=== PATIENT | female | born 1990 | race Caucasian/White ===

== ENCOUNTER 2025-06-05 10:13 | Outpatient (AMB) | payer OTHER, SELFPAY ==
[2025-06-05 10:28] VITALS: BP 92/60; PULSE 70; RESP 15; TEMP 36.9; O2SAT 98; BMI 28.7
--- NOTE | 2025-06-05 10:28 | A.OFFPC_ITS ---
Vital Signs 06/05/25 10:28 Height 4 ft 11 in Weight 142 lb BMI 28.7 BP 92/60 Blood Pressure Location Lt brachial Position Sitting Respiration 15 Pulse 70 Pulse Source Pulse Oximeter Temp 98.5 F Temp Source Oral Pulse Oximetry (%) 98 Oxygen Delivery Method Room Air Intake Visit Reasons: Pain in left heel Intake Note: Pt is here today as a New Patient to [facility] c/o foot pain: Pt has a hx of plantar fasiitis Allergies ibuprofen Adverse Reaction (Verified 06/05/25 10:59) hives tramadol Adverse Reaction (Verified 06/05/25 10:59) hives Medication List - Last Reconciled 06/05/25 by Radha Rojas MD albuterol sulfate 90 mcg/actuation (Ventolin HFA) 2 puffs inhalation Q6H PRN Tobacco use date assessed: 06/05/25 Dental Screening Dental Screen Date: 06/05/25 Did you have a dental visit in the last 12 months?: Yes Did you have a dental problem in the last 6 months where you did not have access to dental care?: Yes Was dental information given to patient?: Patient has dentist HPI HPI Comments History of Present Illness Details - The patient is a 35-year-old female ne w to practice, here today to establish care with a new PCP and presenting with ongoing pain and issues related to a previous left foot surgery done in [place]. - She underwent surgery on her left foot approximately three to four years ago in [place] to remove a metallic foreign body from her left heel. Despite the surgery, she continues to experience difficulty bearing weight on the left heel, affecting her gait. - Imaging, including a CT scan, was previously conducted to identify the foreign body. - The patient has asthma and uses an alb uterol inhaler as needed. - She has a history of laparoscopic chol ecystectomy performed approximately seven years ago at [facility] in [place]. [facility] Medical History (Updated 06/05/25 @ 11:18 by Radha Rojas MD) Mild intermittent asthma History of gallstones Chronic pain of left heel Surgical History (Updated 06/05/25 @ 11:10 by Radha Rojas MD) Status post laparoscopic cholecystectomy Family History (Updated 06/05/25 @ 10:31 by Lesly Griggs CMA) Mother Substance use disorder Father Substance use disorder Paternal Grandmother Mental health disorder Social History Housing: Apartment Patient Tobacco Use Status: Current someday Tobacco user e-Cigarette/Vaping Use: Never Used service: No Current occupational status: employed Cognitive needs: No Hearing needs: No Vision needs: Yes Questionnaire PHQ-9 Over the last 2 weeks, how often have you been bothered by any of the following problems? 1. Little interest or pleasure in doing things: not at all 2. Feeling down, depressed, or hopeless: not at all 3. Trouble falling or staying asleep, or sleeping too much: not at all 4. Feeling tired or having little energy: not at all 5. Poor appetite or overeating: not at all 6. Feeling bad about yourself - or that you are a failure or have let yourself or your family down: not at all 7. Trouble concentrating on things, such as reading the newspaper or watching television: not at all 8. Moving or speaking so slowly that other people could have noticed. Or the opposite - being so fidgety or restless that you have been moving around a lot more than usual: not at all 9. Thoughts that you would be better off or of hurting yourself in some way: not at all Total score: 0 Depression Screening Interpretation: Negative Depression Screening Done: Yes 67829 - PHQ-9 Billing: Yes Source: Developed by Drs. Luis Hanna, Adriane Cordoba, Shivam Moses and colleagues, with an educational rogelio from [employer]. Thrive Questionnaire Date Thrive assessed: 05/29/25 I am a: Patient What is your living situation today?: I have a steady place to live Within the past 12 months, did the food you bought not last and you didn't have the money to get more?: Never true Within the past 12 months, did you worry whether your food would run out before you got money to buy more?: Never true Do you have trouble paying for medicines?: No Do you have trouble getting transportation to medical appointments?: No Do you have trouble paying your heating and electricity bill?: No Do you have trouble taking care of your child, family member or friend?: No Do you have trouble with day-to-day activities such as bathing, preparing meals, shopping, managing finances, etc.?: No Are you currently unemployed and looking for a job?: No Are you interested in more education?: No Please select the resources that you would like help with: None Currently or been in a relationship where the following occur: No concerns reported THRIVE Score: 0 AUDIT C Alcohol Use Questionnaire (AUDIT-C) 1. How often do you have a drink containing alcohol?: Never 3. How often do you have six or more drinks on one occasion?: Never Total Score: 0 Score Reviewed/Action Taken: Yes CHRISTINA-7 AMB Questionnaire CHRISTINA-7 Date CHRISTINA - 7 assessed: 06/05/25 Feeling nervous, anxious, or on edge: 1 = Several days Not being able to stop or control worryin = Several days Worrying too much about different things: 1 = Several days Trouble relaxin = Not at all Being so restless that it is hard to sit still: 0 = Not at all Becoming easily annoyed or irritable: 1 = Several days Feeling afraid as if something awful might happen: 0 = Not at all Total CHRISTINA-7 score (0-4 normal; 5-9 mild; 10-14 moderate; 15-21 severe): 4 Source: Developed by Drs. Luis Hanna, Adriane Cordoba, Shivam Moses and colleagues, with an educational rogelio from [employer]. CHRISTINA-7 Assessment Billing CHRISTINA-7 Assessment Tool: CHRISTINA-7 Assessment 44532 ACT Questionnaire In the past 4 weeks, how much of the time did your asthma keep you from getting as much done at work, school or at home?: None of the time During the past 4 weeks, how often have you had shortness of breath?: Not at all During the past 4 weeks, how often did your asthma symptoms wake you up at night or earlier than usual in the morning?: Not at all During the past 4 weeks, how often have you had to use your rescue inhaler or nebulizer medication?: Not at all How would you rate your asthma control during the past 4 weeks?: Completely co ntrolled ACT Interpretation: Negative Score: 25 Review of Systems Const Denies body aches, Denies fatigue, Denies fever(s), Denies headache(s) and Denies weakness Eyes Denies change in vision ENT Denies dizziness, Denies headache(s) and Denies nasal congestion Card Denies chest pain, Denies lightheadedness, Denies palpitations and Denies dyspnea Resp Denies chest congestion, Denies cough, Denies dyspnea and Denies wheezing GI Denies abdominal pain, Denies change in bowel habits and Denies heartburn Denies hematuria, Denies urinary frequency, Denies dysuria and Denies urinary urgency Musc Reports as per HPI Skin/Breast Denies breast pain, Denies breast mass, Denies lesions and Denies rash Neuro Denies dizziness, Denies headache(s) and Denies weakness Psych Reports no additional complaints Endo Denies fatigue, Denies polydipsia, Denies polyuria and Denies palpitations Chaparro/Lymph Denies easy bruising Aller/Immun Denies seasonal rhinorrhea and Denies wheezing Physical exam (Primary Care) Vital Signs: Last Vital Signs Temp 98.5 F 06/05/25 10:28 Pulse 70 06/05/25 10:28 Resp 15 06/05/25 10:28 BP 92/60 06/05/25 10:28 Pulse Ox 98 06/05/25 10:28 Oxygen Delivery Method Room Air 06/05/25 10:28 BMI result Body Mass Index 28.7 Tobacco/Smoking Status: Tobacco use Status Tobacco use date assessed 06/05/25 06/05/25 10:36 Patient Tobacco Use Status Current someday Tobacco 06/05/25 10:36 e-Cigarette/Vaping Use Never Used 06/05/25 10:36 PHQ-9: PHQ-9 Score PHQ-9: Total score 0 06/05/25 11:21 Depression Screening Interpretation: Negative Thrive Assessment: Date of Thrive Assessment Date Thrive assessed 05/29/25 06/05/25 10:36 Currently or been in a relationship where the following occur: No concerns reported Advance Care Planning discussion: Completed/Scanned Date of discussion: 06/05/25 Who was present: Patient Forms completed: Health Care Proxy Time spent: 16-45 minutes Actual minutes spent: 2 Const General: no acute distress and alert Orientation/consciousness: patient oriented x3 HENMT Ears: external ears normal, TM's normal bilaterally and EAC's normal General nose exam: Normal external nose present Mouth: Normal oral and palatal mucosa present and moist mucous membranes Eyes General: appearance normal, both eyes and all related structures Conjunctivae: conjunctivae normal Sclerae: sclerae normal Pupils: Equal, round and reactive pupils present EOM: EOMs intact bilaterally Neck Neck: Yes full ROM, Yes no lymphadenopathy and Yes supple Resp Effort & Inspection: normal respiratory effort and able to speak in complete sentences Auscultation: clear to auscultation bilaterally Cardio Rate: regular rate Rhythm: regular rhythm Heart sounds: S1 normal heart sound present and S2 normal heart sound present GI Palpation (GI): Soft to palpation, nontender and no masses Auscultation: normal bowel sounds Back/Spine/Pelvis Back: No back tenderness Skin General skin exam: no rashes or lesions noted Neuro General: patient oriented x3, gait normal, tone normal, moves all extremities, Normal light touch and pain sensation and no focal motor deficits Cranial nerves: Yes CN's II-XII intact bilaterally and Yes Equal, round and reactive pupils present Cognition (Neuro): normal cognition Extrem Other: Slight tenderness on palpation over left heel, no gross bone deformity or joint swelling seen General: Yes full ROM, Yes no joint enlargement, Yes no clubbing, cyanosis or edema and Yes no calf tenderness Left lower extremity: foot (Crusted lesion on heel of left foot, tender to palpation) Psych Appearance: grossly normal and well kempt Mental Status: mental status grossly normal Speech and movement: Normal speech and movement present Affect: normal affect Coding Level of Care Code New Pt Level 4 (32650) Diagnoses Mild intermittent asthma without complication J45.20 Asthma complication type: uncomplicated Chronic pain of left heel M79.672; G89.29 Screening for malignant neoplasm of cervix Z12.4 Advance directive discussed with patient Z71.89 Additional Codes PHQ-9 - 32383 - PHQ-9 Billing: Yes ([id number]) Vital Signs *Quality* - Advance Care Planning discussion: Completed/Scanned ([id number]) Vital Signs *Quality* - Time spent: 16-45 minutes ([id number]) CHRISTINA-7 Assessment Billing - CHRISTINA-7 Assessment Tool: CHRISTINA-7 Assessment 63946 ([id number]) Asthma Control Questionnaire - ACT Interpretation: Negative ([id number]) Assessment & Plan Assessment & Plan (1) Mild intermittent asthma: Code(s): J45.20 - Mild intermittent asthma, uncomplicated Category: Medical Qualifiers: Asthma complication type: uncomplicated Qualified Code(s): J45.20 - Mild intermittent asthma, uncomplicated Plan: Requested records from previous provider in [place] including vaccines. Refill sent for albuterol inhaler, which she uses rarely (2) Chronic pain of left heel: Code(s): M79.672 - Pain in left foot; G89.29 - Other chronic pain Category: Medical Plan: Podiatry consult ordered, copies of previous records and surgical history, labs, as Ziggy procedures requested from her previous provider in [place] (3) Screening for malignant neoplasm of cervix: Code(s): Z12.4 - Encounter for screening for malignant neoplasm of cervix Plan: Referral to [facility] for her routine Pap and pelvic exam. (4) Advance directive discussed with patient: Code(s): Z71.89 - Other specified counseling Plan: - Initiated the conversation about Advanced Directives. Advanced Directives help patients prepare for current and future decisions about their medical treatment and place of care. Discussed with patient that it is a process where a patients current condition and prognosis are reviewed, their wishes for information regarding their illness are elicited, and likely medical dilemmas are presented and options discussed. Healthcare proxy form completed today. The form can be amended as needed, reviewed yearly and make changes as needed Orders: Referrals Podiatry Referral G89.29 - Other chronic pain, M79.672 - Pain in left foot OPERATIONAL METEOROLOGIST Referral Z12.4 - Encounter for screening for malignant neoplasm of cervix Medications: New albuterol sulfate 90 mcg/actuation (Ventolin HFA) 2 puffs inhalation Q6H PRN 8.5 grams 1RF shortness of breath or wheezing J45.20 - Mild intermittent asthma, uncomplicated
--- OUTSIDE RECORDS SUMMARY | 2025-06-05 11:44 | XMS_ITS ---
Author Name [facility] Organization Unknown History of Medication Use Medication Directions Dispensed Refills Start Date End Date Stat us ondansetron (ZOFRAN) 4 mg tablet Take 1 tablet (4 mg total) by mouth every 8 (eight) hours if needed for nausea or vomiting. 04/16/2025 active SUMAtriptan (IMITREX) 50 mg tablet Take 1 tablet (50 mg total) by mouth 1 (one) time if needed for migraine. May repeat dose once in 2 hours if no relief. Do not exceed 2 doses in 24 hours. 04/16/2025 active albuterol HFA (PROAIR HFA ; PROVENTIL HFA ; VENTOLIN HFA) 90 mcg/actuation inhaler Inhale 2 puffs by mouth every 6 (six) hours if needed for wheezing. active Allergies Allergen Reaction Severity Comment Documented Date Source Statu s IBUPROFEN 06/07/2024 [facility] active TRAMADOL 06/07/2024 [facility] active Problems Problem Status Onset Date Problem Type Date of Resolution Source Mild intermittent asthma without complication active 2025-04-16 ProblemAct [facility]_THSFRAN Migraine without aura and without status migrainosus, not intractable active EncounterDiagnosisAct CT_THS HERNÁN Encounters Encounter Type Encounter Reason Primary Diagnosis Location Date Ambulatory [facility] 04/16/2025 Emergency Headache, unspecified [employer] [facility] 05/04/2022 Emergency Migraine, unspecified, not intractable, without status migrainosus [facility] 04/26/2022 Emergency Pain in left foot [facility] [employer] 03/23/2022 Emergency Other muscle spasm [facility] 09/18/2021 Emergency Pain, unspecified [employer] 09/06/2021 Emergency Headache, unspecified [employer] [facility] 08/28/2021 Emergency Sprain of unspec ified ligament of left ankle, initial encounter [facility] 08/15/2021 Care Team Organization Name Specialty Phone Email Start Date End Da te [facility] PHYSICIAN Primary Care 04/16/2025 [facility] NO PHYSICIAN Primary Care 04/16/2025 [facility] 02/13/2024 [facility] 04/27/2023 [facility] 11/07/2022 06/03/2024 [facility] Primary Care 06/08/2022 [facility]WAF FRYE Primary Care 08/15/202106/08 [facility] Primary Care 021 06/03/2024 [facility] NAWAF FRYE Primary Care 05/04/20 21 05/04/2021 [facility]
--- OUTSIDE RECORDS SUMMARY | 2025-06-05 11:44 | XMS_ITS | Clinical Summary ---
Author Organization [facility] Address [address] [place] [id number] Phone Care Team Providers Care Binder And Box Builder Name Role Phone Physician, No Pcp Primary Care Provider Unavaila ble Allergies Active Allergy Reactions Criticality Noted Date Comments Ibuprofen Unknown 06/07/2024 Tramadol Unknown 06/07/2024 Medications albuterol HFA (PROAIR HFA ; PROVENTIL HFA ; VENTOLIN HFA) 90 mcg/actuation inhaler Inhale 2 puffs by mouth every 6 (six) hours if needed for wheezing. Active ondansetron (ZOFRAN) 4 mg tablet Take 1 tablet (4 mg total) by mouth every 8 (eight) hours if needed for nausea or vomiting. 20 tablet 3 04/16/2025 Active SUMAtriptan (IMITREX) 50 mg tablet Take 1 tablet (50 mg total) by mouth 1 (one) time if needed for migraine. May repeat dose once in 2 hours if no relief. Do not exceed 2 doses in 24 hours. 9 tablet 5 04/16/2025 Active Active Problems Problem Noted Date Diagnosed Date Mild intermittent asthma without complication Encounters Date Type Department Care Team Description 04/16/2025 1:00 PM EDT Telemedicine [address] [id number] Irasema Grace MD Migraine without aura and without status migrainosus, not intractable (Primary Dx) from Last 3 Months Medical History Medical History Date Comments Asthma Migraines Social History Tobacco Use Types Packs/Day Years Used Date Smoking Tobacco: Every Day Cigarettes Smokeless Tobacco: Never Tobacco Cessation:Ready to Q uit: Not Asked; Counseling Given: Not Answered Housing Instability Answer Date Recorde d Are you worried that in the next 2 months you may not have stable housing? No 04/16/2025 Food Access & Nutrition Answer Date Rec orded Do you have access to a vari ety of food including fruits and vegetables? Yes 04/16/2025 Access to Healthcare Answer Date Record ed Within the last 3 months, ho w many times did you visit the emergency department for your medical care? 6 04/16/2025 Health Literacy Answer Date Recorded How often do you need to hav e someone help you when you read instructions, pamphlets, or other written material from your doctor or pharmacy? Never 04/16/2025 Caregiver: How often do you need to have someone help you when you read instructions, pamphlets, or other written material from your doctor or pharmacy? Not on file 04/16/2025 Transportation Answer Date Recorded Has the lack of transportati on kept you from meetings, work, or from getting things needed for daily living? No Has the lack of transportati on kept you from medical appointments or from getting medications? No 04/16/2025 Social Isolation Answer Date Recorded How often do you feel lonely or isolated from th ose around you? Never 04/16/2025 Food Risk Answer Date Recorded Within the past 12 months we worried whether our food would run out before we got money to buy more. Never true 04/16/2025 Within the past 12 months th e food we bought just didn t last and we didn t have money to get more. Not on file 04/16/2025 Dependent Care Answer Date Recorded Do you need help finding or paying for care for your loved ones. For example, special needs child caregiver or elderly care for an older adult? No 04/16/2025 Education Answer Date Recorded Do you think completing more education or training, like finishing a GED, going to college, or learning a trade, would be helpful for you? Yes 04/16/2025 Employment and Income Answer Date Recor ded During the last four weeks, have you been actively looking for work? Yes 04/16/2025 Living Situation Answer Date Recorded What is your living situation? 0 04/16/2025 Comments Unknown Sex and Gender Information Value Date Recorded Sex Assigned at Female 11/19/2024 11:53 AM EST Legal Sex Female 3:44 PM EDT Gender Identity Female 11/19/2024 11:53 AM EST Sexual Orientation Lesbian or Jean 11/20/2024 12 :16 PM EST Obstetrics History Last Filed Vital Signs Vital Sign Reading Time Taken Comments Blood Pressure 104/66 01/15/2025 8:52 AM EDT Pulse 91 01/15/2025 8:52 AM EDT Temperature 36.6 C (97.9 F) 01/15/2025 8:52 AM EDT Respiratory Rate 18 01/15/2025 8:52 AM EDT Oxygen Saturation 97% 01/15/2025 8:52 AM EDT Inhaled Oxygen Concentration - - Weight 61.7 kg (136 lb 0.4 oz) 01/15/2025 8:48 A M EDT Height 144.8 cm (4' 9 ) 01/15/2025 8:48 AM EDT Body Mass Index 29.44 01/15/2025 8:48 AM EDT Plan of Treatment Upcoming Encounters Date Type Department Care Team (Late st Contact Info) Description 07/18/2025 11:00 AM EDT Office Visit [facility] [address] [place] [phone] Susan Davila PA [address] [place] [address] Health Maintenance Due Date Last Done Comments DTaP,Tdap,and Td Vaccines (1 - Tdap) 02/11/2007 Hepatitis B Vaccines (1 of 3 - 19+ 3-dose series) 02/11/2007 Pneumococcal Vaccine: Pediatrics (0 to 5 Years) and At-Risk Patients (6 to 49 Years) (1 of 2 - PCV) 02/11/2007 Cervical Cancer Screening: P ap Smear 02/11/2009 COVID-19 Vaccine (2023-2 5 season) 2024 02/02/2022, 12/28/2021 Cholesterol Screening (Lipid Panel) 07/25/2024 HIV Screening 07/25/2024 Hepatitis C Screening 07/25/2024 Influenza Vaccine (#1) 2025 2, 08/11/2020, 12/25/2019 Social Influencers of Health Screening 04/16/2026 04/16/2025 Depression Screening Completed 04/16/2025 HIB Vaccines Aged Out No longer eligi ble based on patient's age to complete this topic HPV Vaccines Aged Out No longer eligi ble based on patient's age to complete this topic Hepatitis A Vaccines Aged Out No long er eligible based on patient's age to complete this topic IPV Vaccines Aged Out No longer eligi ble based on patient's age to complete this topic MMR Vaccines Aged Out No longer eligi ble based on patient's age to complete this topic Meningococcal ACWY Vaccine Aged Out N o longer eligible based on patient's age to complete this topic Meningococcal B Vaccine Aged Out No l onger eligible based on patient's age to complete this topic RSV Immunization Patients Under 20 months Aged Out No longer eligible b ased on patient's age to complete this topic Varicella Vaccines Aged Out No longer eligible based on patient's age to complete this topic Insurance [employer] Care Teams Binder And Box Builder Relationship Specialty Start Date End Date Physician, No Pcp PCP - General 10/13/24
== END 2025-06-05 11:16 | disposition home or self-care (01) ==
LOC: HO.HMCC 10:14
PROVIDERS: Visit Provider Internal Medicine
DX: J45.20 Mild intermittent asthma, uncomplicated (principal); M79.672 Pain in left foot; G89.29 Other chronic pain; Z12.4 Encounter for screening for malignant neoplasm of cervix; Z71.89 Other specified counseling; Z00.00 Encounter for general adult medical examination without abnormal findings

== ENCOUNTER → 2025-06-05 10:13 | Outpatient (BNVA) | payer OTHER, SELFPAY | PROVIDERS: Visit Provider Internal Medicine | DX: J45.20 Mild intermittent asthma, uncomplicated (principal); M79.672 Pain in left foot; G89.29 Other chronic pain; Z71.89 Other specified counseling | CPT/HCPCS: 96127; 96160; 99202; 99497 ==

== ENCOUNTER 2025-07-03 10:55 | Outpatient (AMB) | payer OTHER, SELFPAY ==
[2025-07-03 10:58] VITALS: BP 110/82; BMI 28.7
--- NOTE | 2025-07-03 10:58 | MHC.OFFVIS ---
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 Berry Picker Machine Operator Required: Yes Berry Picker Machine Operator Services: Berry Picker Machine Operator Present (in person) Berry Picker Machine Operator Name: Nika GALVEZ Information Interpreted: non-clinical & clinical Ground Support Equipment Fitter: Ground Support Equipment Fitter Present (Nika GALVEZ) Accompanied by: Self / Same As Patient Allergies ibuprofen Adverse Reaction (Verified 07/03/25 10:59) hives tramadol Adverse Reaction (Verified 07/03/25 10:59) hives Is last menstrual period known: Yes Last menstrual period: 06/12/25 HPI Comments Details: Presenting for annual exam. Complaining of right vulvar swelling that drained last night and almost resolved Last Pap/HPV? [facility] Medical History Mild intermittent asthma History of gallstones Chronic pain of left heel Surgical History Status post laparoscopic cholecystectomy Family History Mother Substance use disorder Father Substance use disorder Paternal Grandmother Mental health disorder Social History Housing: Apartment Patient Tobacco Use Status: Current someday Tobacco user e-Cigarette/Vaping Use: Never Used service: No Current occupational status: employed Cognitive needs: No Hearing needs: No Vision needs: Yes Female Reproductive History Menstrual Age of Menarche: 9 Duration of menses: 3-5 days Date of last menstrual period: 06/12/25 control method: none and abstinence History of abnormal pap smear: No History of abnormal mammogram: No Review of Systems Const All systems reviewed & are unremarkable except as noted in HPI and below Card Reports as per HPI Resp Reports as per HPI GI Reports as per HPI and Reports no additional complaints Reports as per HPI Physical Exam Vital Signs: Last Vital Signs BP 110/82 07/03/25 10:58 BMI result Body Mass Index 28.7 Const General: cooperative, healthy appearing and comfortable Chest Chest palpation & inspection: normal inspection of the chest and normal palpation of entire chest wall Breast/axilla inspection: normal inspection of the breasts and normal inspection of the axillae Breast/axilla palpation: normal palpation of the breasts, normal palpation of the axillae and no axillary lymphadenopathy Resp Effort & Inspection: normal respiratory effort Auscultation: clear to auscultation bilaterally Percussion: percussion normal Cardio Palpation: normal PMI Rate: regular rate Rhythm: regular rhythm Heart sounds: no murmurs and no rubs Peripheral pulses: Peripheral pulses 2+ throughout GI Inspection: Yes normal to inspection Palpation (GI): Soft to palpation, nontender, no guarding, not rigid and No hepatosplenomegaly present Percussion: Yes normal to percussion Auscultation: normal bowel sounds Rectal Exam - Female: deferred General: Yes bladder normal to palpation External Female Exam: No normal external appearance (Right 0.2 cm abscess draining no evidence of cellulitis) and No lesion Speculum Exam - Vagina: normal appearance of the vagina, normal palpation, normal vaginal discharge and not erythematous Speculum Exam - Cervix: normal appearance of the cervix and normal palpation Bimanual exam- vagina & uterus: normal bimanual exam, normal palpation, uterine size normal, bladder normal to palpation, consistency normal and normal palpation Bimanual Exam- Adnexa, other: normal adnexae, no masses and no tenderness Assessment & Plan Assessment & Plan (1) Well woman exam: Code(s): Z01.419 - Encounter for gynecological examination (general) (routine) without abnormal findings Category: Medical Plan: Cotesting done. Counseled the patient about the recommended dietary allowance of 1000 mg of Calcium & 600 IU of vitamin D. The patient was instructed to perform monthly self-breast exams and to schedule an annual exam in a year; All questions answered and the patient verbalized understanding. Instructed the patient to schedule annual exam in a year (2) Vulvar abscess: Comment: Right side Code(s): N76.4 - Abscess of vulva Category: Medical Plan: Discussed with the patient the finding on pelvic exam, right draining small vulvar abscess, instructions given the patient to call if it persists or recurs, if temperature above 100.4 or pain occurs, all questions answered, the patient verbalized understanding Coding Level of Care Code Est Pt Prev Care 18-39y(19186) Diagnoses Well woman exam Z01.419 Vulvar abscess N76.4
== END 2025-07-03 11:26 | disposition home or self-care (01) ==
LOC: HO.HWS 10:55
PROVIDERS: Visit Provider Obstetrics & Gynecology
DX: Z01.419 Encounter for gynecological examination (general) (routine) without abnormal findings (principal); N76.4 Abscess of vulva
CPT/HCPCS: 99395; 99459

== ENCOUNTER 2025-07-03 10:55 | Outpatient (REF) | payer OTHER, SELFPAY ==
--- OUTSIDE RECORDS SUMMARY | 2025-07-03 13:35 | XMS_ITS | Clinical Summary ---
Author Organization [facility] Address [address] [place] [phone] Phone Care Team Providers Care Geological Aide Name Role Phone Physician, No Pcp Primary [...] Team Description 04/16/2025 1:00 PM EDT Telemedicine [address] [id number] Irasema Grace MD Migraine without [...] care for your loved ones. For example, child life specialist or elderly care for an older adult? [...] Description 07/18/2025 11:00 AM EDT Office Visit [facility] [address] [place] [phone] Susan Davila, INDRA [address] [place] [address] Health Maintenance Due Date Last Done Comments DTaP,Tdap,and Td Vaccines (1 - Tdap) 02/11/2007 Hepatitis B Vaccines (1 of 3 - 19+ 3-dose series) 02/11/2007 Pneumococcal Vaccine: Pediatrics (0 to 5 Years) and At-Risk Patients (6 to 49 Years) (1 of 2 - PCV) 02/11/2007 Cervical Cancer Screening: P ap Smear 02/11/2009 Cholesterol Screening (Lipid Panel) 07/25/2024 HIV Screening 07/25/2024 Hepatitis C Screening 07/25/2024 COVID-19 Vaccine (3 - 2024-2 6 season) 2025 02/02/2022, 12/28/2021 Influenza Vaccine (#1) 2025 2, 08/11/2020, 12/25/2019 [...] this topic Insurance HE[employer] PLAN Care Teams Geological Aide Relationship Specialty Start Date End Date Physician, No Pcp PCP - General 10/13/24
[2025-07-03 22:04] LABS: Bacterial Vaginosis PCR POSITIVE (Negative); Candida Group PCR NOT DETECTED (Not Detect); Candida glab krusei PCR NOT DETECTED (Not Detect); Trichomonas vaginalis PCR NOT DETECTED (Not Detect)
[2025-07-03 23:07] LABS: CT PCR NOT DETECTED (Not Detect.); NG PCR NOT DETECTED (Not Detect.)
== END 2025-07-03 10:56 | disposition home or self-care (01) ==
LOC: HO.LNP 10:55
PROVIDERS: Visit Provider Obstetrics & Gynecology
DX: Z01.419 Encounter for gynecological examination (general) (routine) without abnormal findings (principal); N76.4 Abscess of vulva; Z11.51 Encounter for screening for human papillomavirus (HPV); Z20.2 Contact with and (suspected) exposure to infections with a predominantly sexual mode of transmission
CPT/HCPCS: 81515; 87491; 87591; 87626; 88175; 99395

== ENCOUNTER 2025-07-10 13:34 | Outpatient (AMB) | payer OTHER, SELFPAY ==
--- OUTSIDE RECORDS SUMMARY | 2010-06-29 20:00 | XMS_ITS | Continuity of Care Document ---
Author Organization [facility] Address [address] [place] [address] Phone Care Team Providers Care Extrusion Technician Name Role Phone Unavailable Unavailable Unavailable Medications [...] DETAILED OUT/PT [facility], [address] [place], [address], [place] tel:[phone] [facility] Adult Medicine No Information 0 No Information COMPREHENSIVE OUT/PT [facility], [address] [place] [address], [address], [place] tel:[phone] [facility] Adult Medicine No Information 0 No Information DETAILED OUT/PT [facility], [address] [place] [address], [address], [place] tel:[phone] [facility] Adult Medicine No Information 0 No Information DETAILED OUT/PT [facility], [address] [place] [address], [address], [place] tel:[phone] [facility] Adult Medicine No Information 0 No Information [facility], [address] [place] [address], [address], [place] tel:[phone] Conversion MIGRAINE, UNSPECIFIED, WITHOUT MENTION OF INTRACTABLE MIGRAINE WITHOUT MENTION OF STATUS MIGRAINOSUS 0 No Information [facility], [address] [place] [address], [address], [place] tel:[phone] Conversion HUMAN IMMUNODEFICIE NCY VIRUS [HIV] DISEASE 0 No Information [facility], [address] [place] [address], [address], [place] tel:[phone] Conversion COUNSELING ON SUBSTANCE USE AND ABUSEDEPRESSI VE DISORDER, NOT ELSEWHERE CLASSIFIED 0 No Information DETAILED OUT/PT [facility], [address] [place] [address], [address], [place] tel:[phone] [facility] Adult Medicine No Information 0 No Information [facility], [address] [place] [address], [address], [place] tel:[phone] Conversion ROUTINE GENERAL MEDICAL EXAMINATION 0 No Information [facility], [address] [place] [address], [address], [place] tel:[phone] Conversion No Information 0 No Information PREV VISIT, EST, AGE 18-39 [facility], [address] [place] [address], [address], [place] tel:[phone] [facility] Adult Medicine No Information 0 No Information [facility], [address] [place] [address], [address], tel:[phone] Historic Immunization Location No Information 0 No Information [facility], [address] [place], [address], tel:[phone] Conversion ABDOMINAL PAIN - RIGHT LOWEROVARIAN CYST 0 No Information Family History Family Member Type Diagnosis Age At Onset No Information Immunizations Vaccine Date Status Comments TDAP VACCINE >7 IM administered Source: N ew Immunization Record Payers Payer name Insurance type Covered democrat ID Authoriza tion(s) No Information Social History [...]
[2025-07-10 14:02] VITALS: BMI 28.3
--- NOTE | 2025-07-10 14:02 | A.OFFVIS_ITS ---
Vital Signs 07/10/25 14:02 Height 4 ft 11 in Weight 140 lb BMI 28.3 Intake Visit Reasons: left foot pain Intake Note: Tere is a 35 year old female who presents today as a new patient for an evaluation of her left foot pain. She mentions She underwent surgery on her left foot approximately three to four years ago in [place]. The surgery was done to remove a metallic foreign object from her left heel. She currently is experiencing difficulty while ambulating and bearing weight on her foot. Her pain is located on the medial aspect of the ankle and foot, she also feels a tingling sensation in her toes. she notes that when she puts her feet up relaxed she notices some discoloration on her foot. Allergies ibuprofen Adverse Reaction (Verified 07/03/25 10:59) hives tramadol Adverse Reaction (Verified 07/03/25 10:59) hives HPI Comments Details: The patient is a 35-year-old female with a past medical history as seen below presenting with chronic left foot/ankle pain and discoloration/thickened appearance of right hallucal toenail. Approximately four years ago, the patient underwent surgery due to a foreign body in the left foot and has been experienced persistent foot pain and an abnormal sensation while stepping. Patient states she has difficulty placing the heel down and continued pain, necessitating walking on toes and the side of the foot. The patient reports persistent pain exacerbated by walking and standing, with episodes of swelling and cramping. Pain is described as sharp and stabbing, often worsening at night, affecting sleep quality. The patient has tried various medications, including Tylenol, Aleve and Naproxen, with limited relief. She has also attempted non- pharmacological interventions such as soaking the foot, which provided minimal benefit. The patient also presents with changes to the right hallucal nail, suspected to have developed after a can hit her right hallux and subsequent exposure to unsanitary conditions at the nail salon. She denies any other pedal concerns. She denies any other recent pedal injuries. She denies any current nausea, vomiting, fever, or chills. [facility] Medical History (Updated 07/11/25 @ 09:09 by Evette Canseco DPM) Other enthesopathy of left foot and ankle Plantar fasciitis of left foot Injury of left foot Intractable plantar keratosis Other specified epidermal thickening Onychomycosis Left ankle pain Left foot pain Mild intermittent asthma History of gallstones Chronic pain of left heel Surgical History Status post laparoscopic cholecystectomy Family History Mother Substance use disorder Father Substance use disorder Paternal Grandmother Mental health disorder Social History Housing: Apartment Patient Tobacco Use Status: Current someday Tobacco user e-Cigarette/Vaping Use: Never Used service: No Current occupational status: employed Cognitive needs: No Hearing needs: No Vision needs: Yes Female Reproductive History Menstrual Age of Menarche: 9 Review of Systems Const Details: - Musculoskeletal: Reports chronic foot pain, inability to place heel down, and walking on toes. - Dermatological: Reports thickened, discolored toenail with suspected fungal infection. Reports hyperkeratotic lesion to the plantar medial aspect of the left heel. All systems reviewed & are unremarkable except as noted in HPI and below Physical Exam Vital Signs: BMI result Body Mass Index 28.3 Extrem Other: Bilateral lower extremity focused physical exam: Derm: Severe hyperkeratotic lesion with core noted to the plantar medial aspect of the left foot. Increased thickness and discoloration noted to the right hallucal nail, we will remaining toenail within normal limits. No open lesions abrasions or wounds noted. No clinical signs of infection. No ecchymosis or erythema noted. Mild edema noted to the left foot and ankle. Vascular: DP/PT pulses palpable. Capillary refill time less than 3 seconds. Temperature gradient warm to warm. Pedal hair present. No varicosities noted. Neuro: Protective sensation is grossly intact. MSK: Significant pain on palpation to the medial aspect of the left heel in the area of the hyperkeratotic lesion in medial calcaneal tubercle with radiation to the medial aspect left ankle. Antalgic gait unassisted. Range of motion of the forefoot within normal limits bilaterally. Range of motion of the hindfoot and ankle to the right within normal limits. Range of motion of the hindfoot and ankle to the left limited due to guarding from pain. No crepitus noted. Office Procedures AMB Debridement/Avulsion Podia Details: Debrided the hyperkeratotic lesion noted to the left heel using a 15. Blade with no incidents. Debrided the right hallucal toenail using a nail Nipper and specimen was sent to pathology and microbiology for testing. 88634-Wyjhdalosbl of Nail <6 48853-Rcxctxajutr of Callus (1) Procedure code (CPT) selection complete AMB Podiatry Dressing Details of Procedure: Applied a Redmond compression dressing and short cam boot to the left lower extremity. 90052 - Short leg splint Procedure code (CPT) selection complete Results Reviewed Results Reviewed: Ordered left foot and ankle x-rays to be obtained prior to next visit. Sent toenail specimen to pathology and microbiology for testing. Assessment & Plan Assessment & Plan (1) Onychomycosis: Code(s): B35.1 - Tinea unguium Category: Medical (2) Left foot pain: Code(s): M79.672 - Pain in left foot Category: Medical (3) Left ankle pain: Code(s): M25.572 - Pain in left ankle and joints of left foot Category: Medical Qualifiers: Chronicity: chronic Qualified Code(s): M25.572 - Pain in left ankle and joints of left foot; G89.29 - Other chronic pain (4) Intractable plantar keratosis: Code(s): L84 - Corns and callosities Category: Medical (5) Other specified epidermal thickening: Code(s): L85.8 - Other specified epidermal thickening Category: Medical (6) Injury of left foot: Code(s): S99.922A - Unspecified injury of left foot, initial encounter Category: Medical Qualifiers: Encounter type: initial encounter Qualified Code(s): S99.922A - Unspecified injury of left foot, initial encounter (7) Plantar fasciitis of left foot: Code(s): M72.2 - Plantar fascial fibromatosis Category: Medical (8) Other enthesopathy of left foot and ankle: Code(s): M77.52 - Other enthesopathy of left foot and ankle Category: Medical Plan Patient was informed and verbally consented to the use of an ambient scribe for clinic note documentation during this visit. I discussed with the patient the likelihood of plantar fasciitis and the potential presence of a bone spur, which could be contributing to her chronic left foot pain. We talked about the need for x-rays to confirm the diagnosis and the possibility of an MRI if x-rays are inconclusive. I explained the suspected diagnosis of onychomycosis and the plan to send a right hallux toenail sample for fungal culture and pathology to guide treatment. We also discussed the use of a short CAMboot and foot wrapping to manage symptoms and the importance of follow-up in two weeks to reassess her condition. - Ordered x-rays to evaluate for left foot and ankle pain to be performed prior to next visit. - Awaiting results from nail sample to guide treatment. - Advised patient to keep Redmond compression dressing on at all times and CAMboot while ambulating. - Patient may be WBAT to the LLE. - Advise use of Vaseline or similar emollient after debriding the hyperkeratotic lesion to reduce rate of reoccurrence. - Provided patient with a work note stating she may be WBAT to the LLE. Patient is to return to the office in 2 weeks for further evaluation and treatment. Orders: Orders AMB Podiatry Dressing 07/10/25 M25.572 - Pain in left ankle and joints of left foot, M79.672 - Pain in left foot Fungus Cult Hair/Skin/Nail 07/10/25 B35.1 - Tinea unguium XR foot LT min 3V 07/10/25 M79.672 - Pain in left foot AMB Debridement/Avulsion Podiatry 07/10/25 L84 - Corns and callosities, L85.8 - Other specified epidermal thickening Surgical 07/10/25 B35.1 - Tinea unguium XR ankle LT min 3V 07/10/25 M25.572 - Pain in left ankle and joints of left foot Coding Level of Care Code New Pt Level 4 (07651) Diagnoses Onychomycosis B35.1 Left foot pain M79.672 Chronic pain of left ankle M25.572; G89.29 Chronicity: chronic Intractable plantar keratosis L84 Other specified epidermal thickening L85.8 Injury of left foot, initial encounter S99.922A Encounter type: initial encounter Plantar fasciitis of left foot M72.2 Other enthesopathy of left foot and ankle M77.52 CPT Codes Skin Debridement - CPT: 73733-Ucvwhbrcjdv of Nail <6 ([id number]) Skin Debridement - CPT: 86580-Yvluucrqydu of Callus (1) ([id number]) Podiatry Dressing - CPT: 94798 - Short leg splint ([id number]) Time Spent (min) 55
== END 2025-07-10 15:03 | disposition home or self-care (01) ==
LOC: HO.HPODS 13:35
PROVIDERS: Visit Provider Student in an Organized Health Care Education/Training Program
DX: B35.1 Tinea unguium (principal); M79.672 Pain in left foot; M25.572 Pain in left ankle and joints of left foot; G89.29 Other chronic pain; L84 Corns and callosities; L85.8 Other specified epidermal thickening; S99.922A Unspecified injury of left foot, initial encounter; M72.2 Plantar fascial fibromatosis; M77.52 Other enthesopathy of left foot and ankle
CPT/HCPCS: 11055; 11720; 29515; 99204

== ENCOUNTER 2025-07-10 14:19 | Outpatient (REF) | payer OTHER, SELFPAY | END 2025-07-10 14:20 | disposition home or self-care (01) | LOC: HO.LAB 14:19 | PROVIDERS: Visit Provider Student in an Organized Health Care Education/Training Program | DX: B35.1 Tinea unguium (principal); L85.8 Other specified epidermal thickening; L84 Corns and callosities | CPT/HCPCS: 87101; 87220 ==

== ENCOUNTER 2025-07-10 14:19 | Outpatient (REF) | payer OTHER, SELFPAY | END 2025-07-10 14:20 | disposition home or self-care (01) | LOC: HO.LNP 14:19 | PROVIDERS: Visit Provider Student in an Organized Health Care Education/Training Program | DX: S99.922D Unspecified injury of left foot, subsequent encounter (principal); M72.2 Plantar fascial fibromatosis; M77.52 Other enthesopathy of left foot and ankle; L85.8 Other specified epidermal thickening; L84 Corns and callosities; B35.1 Tinea unguium; X58.XXXD Exposure to other specified factors, subsequent encounter | CPT/HCPCS: 11055; 11720; 29515; 88304; 88312; 99202 ==

== ENCOUNTER 2025-07-22 13:58 | Outpatient (REF) | payer OTHER, SELFPAY ==
--- OUTSIDE RECORDS SUMMARY | 2010-06-29 20:00 | XMS_ITS | Continuity of Care Document ---
Author Organization [facility] Address [address] [place] [address] Phone Care Team Providers Care Cistern Room Operator Name Role Phone Unavailable Unavailable Unavailable Medications Medication Instructions Dosage Effective Dates (start - stop) Status Comments amitriptyline 25 mg tablet SI tab(s) orally once a day (at bedtime) - Active Aviane oral 20 mcg-100 mcg SI tab(s) orally once a day for 28 day(s) - Active ranitidine 150 mg capsule SI cap(s) orally once a day for 30 day(s) - Active ibuprofen 600 mg tablet SI tab(s) or ally every 6 hours PRN(as needed for pain) with food or milk - Active Procedures Procedure Date DETAILED OUT/PT COMPREHENSIVE OUT/PT DETAILED OUT/PT DETAILED OUT/PT DETAILED OUT/PT PREV VISIT, EST, AGE 18-39 URINALYSIS (IH) Results Test Name Date and Time Measure Units Reference Range Abnormal Flag Status Comments Panel Description: HEALTH EDUCATION Unknown Document 0 00:00:00 See [facility] E[facility] Archive Unknown [facility] Conversion NoResultDesc 0 00:00:00 Unknown Advance Directives Directive Yes / No Effective Date File Name No Information Encounters Encounter Description Practice Location Reason(s) For Visit Diagnoses Date Provider Providers Copied on Encounter DETAILED OUT/PT [facility], [address] [place], [address], [place] tel:[phone] [facility] Adult Medicine No Information 0 No Information COMPREHENSIVE OUT/PT [facility], [address] [place] [address], [address], [place] tel:[phone] [facility] Adult Medicine No Information 0 No Information DETAILED OUT/PT [facility], [address] [place] [address], [address], [place] tel:[phone] [facility] Adult Medicine No Information 0 No Information DETAILED OUT/PT [facility], [address] [place] [address], [address], [place] tel:[phone] [facility] Adult Medicine No Information 0 No Information [facility], [address] [place] [address], [address], [place] tel:[phone] Conversion MIGRAINE, UNSPECIFIED, WITHOUT MENTION OF INTRACTABLE MIGRAINE WITHOUT MENTION OF STATUS MIGRAINOSUS 0 No Information [facility], [address] [place] [address], [address], [place] tel:[phone] Conversion HUMAN IMMUNODEFICIE NCY VIRUS [HIV] DISEASE 0 No Information [facility], [address] [place] [address], [address], [place] tel:[phone] Conversion COUNSELING ON SUBSTANCE USE AND ABUSEDEPRESSI VE DISORDER, NOT ELSEWHERE CLASSIFIED 0 No Information DETAILED OUT/PT [facility], [address] [place] [address], [address], [place] tel:[phone] [facility] Adult Medicine No Information 0 No Information [facility], [address] [place] [address], [address], [place] tel:[phone] Conversion ROUTINE GENERAL MEDICAL EXAMINATION 0 No Information [facility], [address] [place] [address], [address], [place] tel:[phone] Conversion No Information 0 No Information PREV VISIT, EST, AGE 18-39 [facility], [address] [place] [address], [address], [place] tel:[phone] [facility] Adult Medicine No Information 0 No Information [facility], [address] [place] [address], [address], tel:[phone] Historic Immunization Location No Information 0 No Information [facility], [address] [place], [address], tel:[phone] Conversion ABDOMINAL PAIN - RIGHT LOWEROVARIAN CYST 0 No Information Family History Family Member Type Diagnosis Age At Onset No Information Immunizations Vaccine Date Status Comments TDAP VACCINE >7 IM administered Source: N ew Immunization Record Payers Payer name Insurance type Covered alliance party ID Authoriza tion(s) No Information Social History Type Description Quantity Date Captured Comments Sex Female Smoking Status No Information Chief Complaint And Reason For Visit No Information Reason For Referral Reason For Referral No Information History Of Present Illness Encounter Date Complaint History Of Prese nt Illness No Information Functional Status Date Functional Assessmen t No Information Instructions Date Instruction Additional Infor mation No Information Assessments Type Assessment Date No Information Patient Care Teams Name Effective Dates (start - stop) Status Members No Information
--- NOTE | ~2025-07-22 | XR_ITS ---
EXAMINATION: XR ANKLE, left CLINICAL INFORMATION: M25.572 - Pain in left ankle and joints of left foot COMPARISON: None available. TECHNIQUE: AP, lateral, and mortise views lower extremity joint, ankle. FINDINGS: Ankle mortise is congruent. There is no widening of the syndesmosis. Talar dome is intact. There are no calcaneal enthesophyte(s). XR/XR ankle LT min 3V IMPRESSION: Unremarkable ankle x-ray. Electronically signed by: John Day MD 07/22/2025 02:34 PM EDT
--- NOTE | ~2025-07-22 | XR_ITS ---
EXAMINATION: XR FOOT, LEFT CLINICAL INFORMATION: M79.672 - Pain in left foot COMPARISON: None available. TECHNIQUE: AP, lateral, and oblique views of the left foot. FINDINGS: Joint spaces are preserved. No osteophytes or erosions are present. There is no joint malalignment or diastases. No fracture line is evident. XR/XR foot LT min 3V IMPRESSION: Unremarkable left foot. Electronically signed by: John Day MD 07/22/2025 02:34 PM EDT
--- OUTSIDE RECORDS SUMMARY | 2025-07-22 17:16 | XMS_ITS | Clinical Summary ---
Author Organization [facility] Address [address] [place] [address] Phone Care Team Providers Care Classified Copy Control Clerk Name Role Phone Physician, No Pcp Primary [...] Diagnosed Date Mild intermittent asthma without complication Medical History Medical History Date Comments Asthma [...] for your loved ones. For example, child development assistant or elderly care for an older adult? [...] Date Recorded What is your living situation? Unrecognized valu e 04/16/2025 Comments Unknown Sex and Gender Information [...] 01/15/2025 8:48 AM EDT Plan of Treatment Health Maintenance Due Date Last Done Comments DTaP,Tdap,and Td Vaccines (1 - Tdap) 02/11/2007 Hepatitis B Vaccines (1 of 3 - 19+ 3-dose series) 02/11/2007 Pneumococcal Vaccine: Pediatrics (0 to 5 Years) and At-Risk Patients (6 to 49 Years) (1 of 2 - PCV) 02/11/2007 Cervical Cancer Screening: P ap Smear 02/11/2009 HPV Vaccines (1 - 3-dose SCD M series) 02/11/2015 Cholesterol Screening (Lipid Panel) 07/25/2024 HIV Screening 07/25/2024 Hepatitis C Screening 07/25/2024 COVID-19 Vaccine (3 - 2024-2 6 season) 2025 02/02/2022, 12/28/2021 Influenza Vaccine (#1) 2025 , 08/11/2020, 12/25/2019 Social Influencers of Health Screening 04/16/2026 04/16/2025 RSV Immunization Adult Patients (1 - 1-dose 75+ series) 02/11/2063 Depression Screening Completed 04/16/2025 HIB Vaccines Aged [...] patient's age to complete this topic Insurance PLAN Care Teams Classified Copy Control Clerk Relationship Specialty Start Date End Date Physician, No Pcp PCP - General 10/13/24
== END 2025-07-22 13:59 | disposition home or self-care (01) ==
LOC: HO.XRAY 13:58
PROVIDERS: PCP Internal Medicine; Visit Provider Student in an Organized Health Care Education/Training Program
DX: M25.572 Pain in left ankle and joints of left foot (principal); M79.672 Pain in left foot
CPT/HCPCS: 73610; 73630

== ENCOUNTER → 2025-07-22 14:06 | Outpatient (BNV) | payer OTHER, SELFPAY | PROVIDERS: PCP Internal Medicine; Visit Provider Radiology Diagnostic Radiology | DX: M25.572 Pain in left ankle and joints of left foot (principal); M79.672 Pain in left foot | CPT/HCPCS: 73610; 73630 ==

== ENCOUNTER 2025-08-07 14:50 | Outpatient (AMB) | payer OTHER, SELFPAY ==
--- OUTSIDE RECORDS SUMMARY | 2010-06-29 20:00 | XMS_ITS | Continuity of Care Document ---
Author Organization [facility] Address [address] [place] [address] Phone Care Team Providers Care Timber Supervisor Name Role Phone Unavailable Unavailable Unavailable Medications [...] OUT/PT DETAILED OUT/PT DETAILED OUT/PT DETAILED OUT/PT URINALYSIS (IH) PREV VISIT, EST, AGE 18-39 Results Test Name Date and Time Measure Units Reference Range Abnormal Flag Status Comments Panel Description: HEALTH EDUCATION Unknown Document 0 00:00:00 See [facility] EHS Archive Unknown [facility] Conversion NoResultDesc 0 00:00:00 Unknown Advance Directives Directive Yes / No Effective Date File Name No Information Encounters Encounter Description Practice Location Reason(s) For Visit Diagnoses Date Provider Providers Copied on Encounter DETAILED OUT/PT [facility], [address] [place] [address], [address], [place] tel:[phone] [facility] Adult Medicine No Information 0 No Information COMPREHENSIVE OUT/PT [facility], [address] [place] [address], [address], [place] tel:[phone] [facility] Adult Medicine No Information 0 No Information DETAILED OUT/PT [facility], [address] [place] [address], [address], [place] tel:[phone] [facility] Adult Medicine No Information 0 No Information DETAILED OUT/PT [facility], [address] [place] [address], [address], [place] tel:[phone] [facility] Adult Medicine No Information 0 No Information [facility], [address] [place] [address], [address], [place] tel:[phone] Conversion MIGRAINE, UNSPECIFIED, WITHOUT MENTION OF INTRACTABLE MIGRAINE WITHOUT MENTION OF STATUS MIGRAINOSUS 0 No Information [facility], [address] [place] [address], [address], [place] tel:[phone] Conversion HUMAN IMMUNODEFICIE NCY VIRUS [HIV] DISEASE 0 No Information [facility], [address] [place] [address], [address], [place] tel:[phone] Conversion COUNSELING ON SUBSTANCE USE AND ABUSEDEPRESSI VE DISORDER, NOT ELSEWHERE CLASSIFIED 0 No Information DETAILED OUT/PT [facility], [address] [place] [address], [address], [place] tel:[phone] [facility] Adult Medicine No Information 0 No Information [facility], [address] [place] [address], [address], [place] tel:[phone] Conversion ROUTINE GENERAL MEDICAL EXAMINATION 0 No Information [facility], [address] [place] [address], [address], [place] tel:[phone] Conversion No Information 0 No Information PREV VISIT, EST, AGE 18-39 [facility], [address] [place] [address], [address], [place] tel:[phone] [facility] Adult Medicine No Information 0 No Information [facility], [address] [place] [address], [address], tel:[phone] Historic Immunization Location No Information 0 No Information [facility], [address] [place], [address], tel:[phone] Conversion ABDOMINAL PAIN - RIGHT LOWEROVARIAN CYST 0 No Information Family History Family Member Type Diagnosis Age At Onset No Information Immunizations Vaccine Date Status Comments TDAP VACCINE >7 IM administered Source: N ew Immunization Record Payers Payer name Insurance type Covered constitution party ID Authoriza tion(s) No Information Social [...]
--- NOTE | 2025-08-07 14:59 | A.OFFVIS_ITS ---
Vital Signs 08/07/25 15:09 Height 4 ft 11 in Weight 140 lb BMI 28.3 Intake Visit Reasons: Lt foot/ankle pain, Xrays, Rt big Toe Intake Note: glenys is a 35 year old female who presents today for a follow up on her left foot injury. During her last appointment she was provided with a camboot and a dukes compression dressing was applied. Pt states she had used the cam boot for 2 weeks and she is no longer using it at this time. She states the pain has remained the same and has not seen any improvement at this time. Foot X-ray IMPRESSION: Unremarkable left foot. Ankle X-ray IMPRESSION: Unremarkable ankle x-ray. Allergies ibuprofen Adverse Reaction (Verified 08/07/25 15:09) hives tramadol Adverse Reaction (Verified 08/07/25 15:09) hives Medication List - Last Reconciled 08/07/25 by Evette Canseco DPM albuterol sulfate 90 mcg/actuation (Ventolin HFA) 2 puffs inhalation Q6H PRN ammonium lactate 12% 1 appl topical DAILY methylprednisolone (Medrol (Romeo)) PO PER PKG DIR HPI Comments Details: The patient is a 35-year-old female presenting for a follow up of right hallux tinea unguium, left plantar fasciitis, left ankle pain, and left IPK. The patient continues to experience pain that is constant and worsened with activity. Patient states she experiences a pins and needles sensation in the left foot, particularly at night. The patient has been using OTC medications like Aleve for pain relief, but reports limited effectiveness. She states the IPK to the plantar aspect of the left heel has grown back and is painful as w ell. She denies any other pedal concerns. She denies any other recent pedal injuries. [facility] Medical History (Updated 07/11/25 @ 09:09 by Evette Canseco DPM) Other enthesopathy of left foot and ankle Plantar fasciitis of left foot Injury of left foot Intractable plantar keratosis Other specified epidermal thickening Onychomycosis Left ankle pain Left foot pain Mild intermittent asthma History of gallstones Chronic pain of left heel Surgical History Status post laparoscopic cholecystectomy Family History Mother Substance use disorder Father Substance use disorder Paternal Grandmother Mental health disorder Social History Housing: Apartment Patient Tobacco Use Status: Current someday Tobacco user e-Cigarette/Vaping Use: Never Used service: No Current occupational status: employed Cognitive needs: No Hearing needs: No Vision needs: Yes Female Reproductive History Menstrual Age of Menarche: 9 Review of Systems Const Details: - Musculoskeletal: Reports chronic foot pain, inability to place heel down, and walking on toes. - Dermatological: Reports thickened, discolored toenail with suspected fungal infection. Reports hyperkeratotic lesion to the plantar medial aspect of the left heel. - Neurological: Reports pins and needles sensation to the left foot. All systems reviewed & are unremarkable except as noted in HPI and below Physical Exam Vital Signs: BMI result Body Mass Index 28.3 Extrem Other: Bilateral lower extremity focused physical exam: Derm: Hyperkeratotic lesion with core noted to the plantar medial aspect of the left foot. Increased thickness and discoloration noted to the right hallucal nail, remaining toenail within normal limits. No open lesions abrasions or wounds noted. No clinical signs of infection. No ecchymosis or erythema noted. Reduced edema noted to the left foot and ankle. Vascular: DP/PT pulses palpable. Capillary refill time less than 3 seconds. Temperature gradient warm to warm. Pedal hair present. No varicosities noted. Neuro: Protective sensation is grossly intact. MSK: Significant pain on palpation to the medial aspect of the left heel in the area of the hyperkeratotic lesion in medial calcaneal tubercle with radiation to the medial aspect left ankle. Antalgic gait unassisted. Range of motion of the forefoot within normal limits bilaterally. Range of motion of the hindfoot and ankle to the right within normal limits. Range of motion of the hindfoot and ankle to the left limited due to guarding from pain. No crepitus noted. Office Procedures AMB Debridement/Avulsion Podia Details: Debrided the hyperkeratotic lesion noted to the left foot using a #15 blade with no incidents. 28412-[place] of Callus (1) Procedure code (CPT) selection complete AMB Podiatry Dressing Details of Procedure: Applied cast padding and an SKINNY bandage to the left foot with the use of the CAMboot. 31889 - Short leg splint Procedure code (CPT) selection complete Results Reviewed Results Reviewed: Right hallucal nail pathology (07/10/25): Rare fungal hyphae and superficial buds, suggesting onychomycosis. Right halucal nail microbiology (07/10/25): Tricophyton rubrum. Podiatry Read of Left foot xrays (07/22/25): Joint space narrowing to the 1st MPJ noted. Budding plantar calcaneal spur noted. No acute fractures or dislocations noted. Left foot xrays (07/22/25): FINDINGS: Joint spaces are preserved. No osteophytes or erosions are present. There is no joint malalignment or diastases. No fracture line is evident. IMPRESSION: Unremarkable left foot. Podiatry Read of Left ankle xrays (07/22/25): No acute fractures or dislocations noted. Joint spacing WNL. Budding plantar calcaneal spur noted. Left ankle xrays (07/22/25): FINDINGS: Ankle mortise is congruent. There is no widening of the syndesmosis. Talar dome is intact. There are no calcaneal enthesophyte(s). IMPRESSION: Unremarkable ankle x-ray. Assessment & Plan Assessment & Plan (1) Other specified epidermal thickening: Code(s): L85.8 - Other specified epidermal thickening Category: Medical (2) Intractable plantar keratosis: Code(s): L84 - Corns and callosities Category: Medical (3) Left foot pain: Code(s): M79.672 - Pain in left foot Category: Medical (4) Left ankle pain: Code(s): M25.572 - Pain in left ankle and joints of left foot Category: Medical Qualifiers: Chronicity: chronic Qualified Code(s): M25.572 - Pain in left ankle and joints of left foot; G89.29 - Other chronic pain (5) Plantar fasciitis of left foot: Code(s): M72.2 - Plantar fascial fibromatosis Category: Medical (6) Onychomycosis: Code(s): B35.1 - Tinea unguium Category: Medical (7) Injury of left foot: Code(s): S99.922A - Unspecified injury of left foot, initial encounter Category: Medical Qualifiers: Encounter type: initial encounter Qualified Code(s): S99.922A - Unspecified injury of left foot, initial encounter (8) Other enthesopathy of left foot and ankle: Code(s): M77.52 - Other enthesopathy of left foot and ankle Category: Medical Plan Patient was informed and verbally consented to the use of an ambient scribe for clinic note documentation during this visit. I discussed with the patient the presence of a minimal bone spur and the possibility of plantar fasciitis contributing to her foot pain. We reviewed the x-ray findings, which showed no significant abnormalities aside from the bone spur and 1st MPJ joint space narrowing. I explained the treatment plan, including the use of a Medrol Dosepak for inflammation and pain, ammonium lactate cream for callus management, and a night splint to assist with relief of plantar fasciitis. We also discussed the need for an MRI to further evaluate the tendons and ligaments. For onychomycosis, I explained the options of topical and oral medication, emphasizing the need for liver function monitoring with the oral treatment. - Debrided the hyperkeratotic lesion to the left foot. - Prescribed ammonium lactate cream for callus management. - Prescribed Medrol Dosepak for inflammation and pain management. - Ordered a left ankle MRI to evaluate tendons and ligaments due to persistent pain. - Provided patient with a night splint. - Advised patient to continue to use the CAMboot as needed. - Applied cast padding and an SKINNY bandage to the left foot with the use of the CAMboot. - Discussed treatment options for onychomycosis, patient opts for oral medication. Will start regimen after Medrol Dose romeo is completed. RTC in 3 weeks Orders: Orders foot LT wo con 08/07/25 G89.29 - Other chronic pain, M25.572 - Pain in left ankle and joints of left foot, M72.2 - Plantar fascial fibromatosis, M79.672 - Pain in left foot AMB Debridement/Avulsion Podiatry 08/07/25 L84 - Corns and callosities, L85.8 - Other specified epidermal thickening, M79.672 - Pain in left foot AMB Podiatry Dressing 08/07/25 G89.29 - Other chronic pain, M25.572 - Pain in left ankle and joints of left foot, M72.2 - Plantar fascial fibromatosis, M77.52 - Other enthesopathy of left foot and ankle, M79.672 - Pain in left foot, S99.922A - Unspecified injury of left foot, initial encounter Medications: New ammonium lactate 12% 1 appl topical DAILY 385 grams 1RF Corns and Calluses L84 - Corns and callosities, L85.8 - Other specified epidermal thickening methylprednisolone (Medrol (Romeo)) PO PER PKG DIR 21 ea 0RF Plantar Fasciitis G89.29 - Other chronic pain, M25.572 - Pain in left ankle and joints of left foot, M72.2 - Plantar fascial fibromatosis, M79.672 - Pain in left foot Coding Level of Care Code Est Pt Level 4 (51967) Diagnoses Other specified epidermal thickening L85.8 Intractable plantar keratosis L84 Left foot pain M79.672 Chronic pain of left ankle M25.572; G89.29 Chronicity: chronic Plantar fasciitis of left foot M72.2 Onychomycosis B35.1 Injury of left foot, initial encounter A27.028T Encounter type: initial encounter Other enthesopathy of left foot and ankle M77.52 CPT Codes Skin Debridement - CPT: 27959-[place] of Callus (1) ([id number]) Podiatry Dressing - CPT: 33969 - Short leg splint ([id number]) Time Spent (min) 57
[2025-08-07 15:09] VITALS: BMI 28.3
--- OUTSIDE RECORDS SUMMARY | 2025-08-07 18:42 | XMS_ITS | Clinical Summary ---
Author Organization [facility] Address [address] [place] [address] Phone Care Team Providers Care Machine Learning Intern Name Role Phone Physician, No Pcp Primary [...] care for your loved ones. For example, wound care specialist or elderly care for an older [...] complete this topic Insurance PLAN Care Teams Machine Learning Intern Relationship Specialty Start Date End Date Physician, No Pcp PCP - General 10/13/24
== END 2025-08-07 15:32 | disposition home or self-care (01) ==
LOC: HO.HPODS 14:50
PROVIDERS: Visit Provider Student in an Organized Health Care Education/Training Program
DX: L85.8 Other specified epidermal thickening (principal); L84 Corns and callosities; M79.672 Pain in left foot; M25.572 Pain in left ankle and joints of left foot; G89.29 Other chronic pain; M72.2 Plantar fascial fibromatosis; B35.1 Tinea unguium; S99.922A Unspecified injury of left foot, initial encounter; M77.52 Other enthesopathy of left foot and ankle
CPT/HCPCS: 11055; 29515; 99214

== ENCOUNTER → 2025-08-07 14:50 | Outpatient (BNVA) | payer OTHER, SELFPAY | PROVIDERS: Visit Provider Student in an Organized Health Care Education/Training Program | DX: L85.8 Other specified epidermal thickening (principal); L84 Corns and callosities; M79.672 Pain in left foot; M25.572 Pain in left ankle and joints of left foot; G89.29 Other chronic pain; M72.2 Plantar fascial fibromatosis; B35.1 Tinea unguium; M77.52 Other enthesopathy of left foot and ankle; S99.922D Unspecified injury of left foot, subsequent encounter; X58.XXXD Exposure to other specified factors, subsequent encounter | CPT/HCPCS: 11055; 29515; 99212 ==